=== PATIENT | male | born 1945 | race Caucasian/White ===

== ENCOUNTER 2016-11-19 07:24 | Observation (INO) | payer MEDICARE, OTHER ==
--- NOTE | 2016-11-19 07:27 | ED Physician Documentation ---
Chest Pain - HISTORIAN Historian: patient - HPI Chief Complaint: Chest Pain Onset: hours Duration: constant (better) Last known Well Date: 11/19/16 Last Known Well Time: 06:00 Last known Well Code/Unknown Code: Known Context: sleep Severity: moderate Quality: tightness Chest Pain Radiation: no radiation Chest Pain Signs/Symptoms: diaphoresis. denies: nausea, vomiting Worsened By: nothing Relieved By: nothing Further Comments: yes (Onset of chest pain about 0600.) - ROS CONST: none - PAST HX VA risk factors: diabetes Type 2 DVT/PE Risk Factors: none Neuro deficit: none GI disease: GERD Lung disease: none Surgeries/Procedures: other (cataract, Tonsilectomy) Immunizations: pneumovax (pnuemovax 13) Allergies/Adverse Reactions: Allergies Allergy/AdvReac Type Severity Reaction Status Date / Time No Known Allergies Allergy Verified 11/19/16 08:08 - SOCIAL HX Smoking History: non-smoker Alcohol Use: rarely Drug Use: none - FAMILY HX Family HX: none - REVIEWED ASSESSMENTS Nursing Assessment Reviewed: Yes Vitals Reviewed: Yes Chest Pain Physical Exam - EXAM General Appearance: alert, mild distress EENT: eye inspection normal, no signs of dehydration Neck: nml inspection, no carotid bruit. No: JVD present, lymphadenopathy Respiratory: no resp. distress, chest non-tender, nml breath sounds CVS: reg. rate & rhythm, no murmur, no gallop, no friction rub, pulses full, pulses equal Abdomen: soft, no organomegaly, normal bowel sounds, no distension, tenderness ( mild in epigastric area.) Skin: warm/dry, normal color Extremities: non-tender, normal range of motion, no evidence of injury, no edema Neuro: oriented X3, CN's nml as tested, motor nml, sensation nml, mood/affect nml, cognition normal Discharge Clincal Impression: Chest pain Condition: Stable Disposition: ADMITTED INPATIENT Decision to Admit: [id number] Date of Decison to Admit: 11/19/16 Decision Time: 08:49
[2016-11-19] MEDS ORDERED: NITROGLYCERIN 0.4 MG TAB.SUBL SL ONE ×3 (07:31→09:43)
[2016-11-19 07:54] LABS: BASOPHILS % 0.2 (0.0-1.5); EOSINOPHILS % 3.2 % (0.0-6.8); MEAN CORPUSCULAR HEMOGLOBIN 29.2 pg (28.0-34.0); MEAN CORPUSCULAR VOLUME 89.3 fl (80.0-100.0); MONOCYTES % 5.6 % (0.0-11.0); NEUTROPHILS # 3.1 # k/uL (1.4-7.7)
[2016-11-19 08:02] LABS: eGFR (African) > 60; eGFR (Non-African) > 60
--- NOTE | 2016-11-19 09:36 | History and Physical Report ---
History of Present Illnes - History of Present Illness Reason for Visit: chest pain History of Present Illness: 71yo white male who developed some chest pain that awoke him from sleep at 0600. Patient denies that he has had any previous chest pain. No SOB noted. Described pain as tightness with no radiation noted. Was diaphoretic with it. No nausea, vomiting or diarrhea noted. Patient is diabetic that is not well controlled. Patient states pain was about 6/10 at maximum. Patient did take 325mg aspirin at home. On arrival at the ED pain had decreased to about 3/10. Patient has not had any previous chest pain. Patient has a history of diabetes that is not well controlled. Had been on metformin in the past which caused some diarrhea. He has been trying to control diabetes with diet since that time. No known history of hyperlipidemia. No significant family history. - Past Medical History Cardiac: denies: CAD, HTN Pulmonary: denies: Asthma, COPD, Pulmonary embolus Gastrointestinal: GERD. denies: Constipation Endocrine: Diabetes (type 2) - Past Surgical History Past Surgical History: Cataract Removal, Other (tonsilectomy) - Past Family History Mother Family History: Father Family History: - Past Social History Smoke: No Alcohol: Rare Drugs: None Lives: With Family Domestic Violence: Negative - Health Maintenance Health Maintenance: Pneumococcal Vaccine. denies: Cholesterol Influenza Vaccine: No Pneumonia Vaccine: Yes Resuscitation Status: Resusciation Status Resuscitation Status Full Code - Unable to Obtain History Unable to Obtain: No Review of Systems - Review of Systems Constitutional: Sweats. negative: Fever, Chills Eyes: negative: vision change ENT: negative: Ear Pain, Ear Discharge, Nose Pain, Nose Discharge, Nose Congestion, Mouth Swelling, Throat Pain, Throat Swelling Respiratory: Cough, Dry. negative: Shortness of Breath, Hemoptysis, SOB with Excertion, Pleuritic Pain Cardiovascular: Chest Pain. negative: Palpitations, Orthopnea, Paroxysmal Noc. Dyspnea, Edema, Light Headedness Gastrointestinal: negative: Nausea, Vomiting, Abdominal Pain, Diarrhea, Constipation, Melena, Hematochezia Genitourinary: negative: Dysuria, Frequency Musculoskeletal: negative: Back Pain Skin: negative: Rash Neurological: negative: Weakness, Numbness, Incoordination, Change in Speech - Medications/Allergies Allergies/Adverse Reactions: Allergies Allergy/AdvReac Type Severity Reaction Status Date / Time No Known Allergies Allergy Verified 11/19/16 08:08 Current Inpatient Medications: Current Inpatient Medications Insulin Human Regular (Humulin R) 0 - 12 unit SQ CHEMQID [facility] PRN Reason: Protocol Miscellaneous (Chem Sticks) 1 each CHEMQID [facility] Last Admin: 11/19/16 07:25 Dose: 1 each Sitagliptin Phosphate (Januvia) 100 mg PO DAILY [facility] Sodium Chloride (Normal Saline Flush) 3 ml IV BID [facility] Exam - Exam General: Alert, Oriented to Person, Oriented to Place, Oriented to Time, Cooperative, Mild distress HEENT: Atraumatic, PERRLA, EOMI, Mouth Mucous membr. moist/[place], Nose Mucous membr. moist/[place] Neck: Normal Range of Motion Carotids: WNL Thyroid: WNL Lungs: Clear to auscultation, Normal air movement, Speaks full Sentences. No: Wheezes, Rales, Rhonchi Cardiovascular: Regular rate, Normal S1, Normal S2, No murmurs. No: Gallops, Rubs Abdomen: Normal bowel sounds, Soft, No tenderness, No hepatospenomegaly, No masses Integumentary: Normal, [place], Warm, Dry Extremities: No clubbing, No cyanosis, No edema, Normal pulses, No tenderness/ swelling Neurological: Normal gait, Normal speech, Strength Equal Bilat, Normal tone, Sensation intact, Cranial nerves 3-12 NL, Reflexes 2+ Psych/Mental Status: Mental status NL, Mood NL, Appropriate Affect, Intact Judgment Assessment/Plan - Assessment/Plan (1) Elevated blood pressure reading Status: Acute Current Visit: Yes Assessment: Will monitor, patient staes that his BP has been running in the 120-130 range (2) Diabetes type 2, uncontrolled Status: Chronic Current Visit: Yes Qualifiers: Diabetes mellitus complication status: without complication Diabetes mellitus assistant terminal manager insulin use: without assistant terminal manager use Qualified Code(s): E11.65 - Type 2 diabetes mellitus with hyperglycemia Assessment: Will start medication treatment, monitor (3) Chest pain Status: Acute Current Visit: Yes Assessment: Will get serial cardiac enzymes and EKGs.
[2016-11-19] MEDS ORDERED: SITAGLIPTIN PHOSPHATE 50 MG TABLET PO SCH (10:00)
[2016-11-19 11:11] VITALS: BMI 31.8
[2016-11-19] MEDS ORDERED: INSULIN REGULAR, HUMAN 100 UNIT/ML 3ML VIAL SQ SCH (12:00)
[2016-11-19] MEDS ORDERED: METOPROLOL TARTRATE 50 MG TABLET ONE (14:00)
--- NOTE | 2016-11-19 14:12 | Discharge Summary ---
Discharge Summary - Discharge Sumary Condition at Discharge: Stable Consultations this Visit: None Procedures this Visit: None Allergies/Adverse Reactions: Allergies Allergy/AdvReac Type Severity Reaction Status Date / Time No Known Allergies Allergy Verified 11/19/16 08:08 Patient Problems: Current Active Problems Problem Status Onset Chest pain Acute Elevated blood pressure reading Acute Diabetes type 2, uncontrolled Chronic Discharge Summary: Patient was admitted to observation care through the ED. Patient had had about a one hour history of chest pain with resolving symptoms at the time he presented to the ED. Patient was given 1 NTG sl with resolution of chest pain. initial troponin and EKG were normal. Patient did have elevated BP on admission to the ED but at the time he was transferred to the floor systolic was in the 150s. Patient does have diabetes that has not been well controlled. Patient denies any previous episodes of chest pain or hypertension. Patient was admitted to observation telemetry. Patient has not had any further chest pain. Second EKG did show some decrease voltage in the v3-v5 leads. Second troponin came back elevated at 1.12. Patient's blood pressure increased and he was given metoprolol 50 mg po. Due to changes in EKG and elevated troponin patient was transferred to [facility]. - Final Diagnosis (1) Chest pain Problems: Probable nonSTEMI (2) Elevated blood pressure reading Problems: (3) Diabetes type 2, uncontrolled Problems:
--- NOTE | 2016-11-19 15:25 | Diagnostic Imaging Report ---
[facility] [place] [id number] [facility].[address] [id number] Report Submission Date: November 19, 2016 8:02:00 AM CDT Patient Study Name: IRA DE ANDA Date: November 19, 2016 7:36:42 AM CDT Modality Type: CR Gender: M Description: CHEST : 45 Institution: [facility] [place] Physician SARBJIT JAMES - SAUL Chest -two views CLINICAL HISTORY: Chest pain for 1 hr. FINDINGS: Examination of the chest in PA and lateral views with no prior film for comparison demonstrates the lungs to be clear. Cardiac silhouette is within normal limits and the aorta is atherosclerotic. Degenerative changes are seen in the thoracic vertebrae. IMPRESSION: Aortic atherosclerosis. No active disease. Electronically signed on November 19, 2016 8:02:00 AM CDT by: Jeremy MIKE
[2016-11-19 15:36] VITALS: BP 174/89
[2016-11-19] MEDS ORDERED: ATORVASTATIN CALCIUM 80 MG TABLET PO SCH (21:00)
[2016-11-19] MEDS ORDERED: SALINE FLUSH 10 ML DISP.SYRIN IV SCH (21:00)
[2016-11-20] MEDS ORDERED: ASPIRIN 81 MG CHEW TAB PO SCH (09:00)
[2016-11-20] MEDS ORDERED: METOPROLOL TARTRATE 50 MG TABLET PO ONE (14:13)
== END 2016-11-19 15:12 | disposition short-term general hospital (02) ==
LOC: ED 07:24 → SOUTH 09:06
PROVIDERS: ADMIT Family Medicine; ATTEND Family Medicine
DX: R07.9 Chest pain, unspecified (principal); E11.9 Type 2 diabetes mellitus without complications; I10 Essential (primary) hypertension
CPT/HCPCS: 36415; 71020; 80053; 80061; 84484; 85025; 93005; G0378; J1815; 99284; S1016

== ENCOUNTER 2017-03-13 09:32 | Outpatient (CLI) | payer MEDICARE, OTHER | END 2017-03-13 09:33 | LOC: LAB 09:32 | PROVIDERS: ATTEND Family Medicine | DX: E11.9 Type 2 diabetes mellitus without complications (principal); I25.10 Atherosclerotic heart disease of native coronary artery without angina pectoris | CPT/HCPCS: 36415; 80061; 82043; 83036 ==

== ENCOUNTER 2017-06-12 09:21 | Outpatient (CLI) | payer MEDICARE, OTHER | END 2017-06-12 09:22 | LOC: LAB 09:21 | PROVIDERS: ATTEND Family Medicine | DX: R73.9 Hyperglycemia, unspecified (principal) | CPT/HCPCS: 36415; 83036 ==

== ENCOUNTER 2017-12-11 08:54 | Outpatient (CLI) | payer MEDICARE, OTHER ==
[2017-12-11 09:33] LABS: eGFR (African) > 60; eGFR (Non-African) > 60
== END 2017-12-11 08:55 ==
LOC: LAB 08:54
PROVIDERS: ATTEND Family Medicine
DX: I25.10 Atherosclerotic heart disease of native coronary artery without angina pectoris (principal); E11.9 Type 2 diabetes mellitus without complications
CPT/HCPCS: 36415; 80053; 80061; 83036